=== PATIENT | female | born 1970 | race Caucasian/White ===

== ENCOUNTER 2017-09-08 15:50 | Emergency (ER) | payer OTHER ==
[2017-09-08 17:52] LABS: URINE BLOOD (Dip) POC Negative (NEGATIVE); URINE GLUCOSE (Dip) POC Negative (NEGATIVE); URINE KETONES (Dip) POC Negative (NEGATIVE); URINE LEUKOCYTE EST (Dip) POC Negative (NEGATIVE); URINE NITRITE (Dip) POC Negative (NEGATIVE); URINE TOTAL PROTEIN POC Negative (NEGATIVE)
[2017-09-08 17:52] LABS: URINE PH (Dip) POC 7.5 (5.0-8.5)
[2017-09-08] MEDS: ACETAMINOPHEN 500 MG TAB PO (17:53)
== END 2017-09-08 19:25 | disposition home or self-care (01) ==
LOC: FTE 15:50
DX: R50.9 Fever, unspecified (principal)
CPT/HCPCS: 81003; 99283